=== PATIENT | female | born 1990 | race Caucasian/White ===

== ENCOUNTER 2016-07-24 22:57 | Emergency (ER) | payer MEDICAID ==
[~2016-07-24] VITALS: Ht 162.6 cm; Wt 85.3 kg
[2016-07-24] MEDS ORDERED: MIDAZOLAM HCL 2 MG/2 ML VIAL ONE (23:18)
--- NOTE | 2016-07-25 00:30 | NUR ---
pt to room, changed into gown. Pt c/o pelvic pain last several days, worse today. Pt denies vaginal bleeding or discharge. Pt resting in position of comfort for self.
[2016-07-25 00:38] LABS: BASOPHILS # (AUTO) 0.1 K/uL (0.0-8.0); BASOPHILS % (AUTO) 0.6 % (0.0-2.0); EOSINOPHILS # (AUTO) 0.3 K/uL (0.0-0.7); EOSINOPHILS % (AUTO) 2.4 % (0.0-7.0); HEMATOCRIT 42.3 % (37-47); LYMPHOCYTES # (AUTO) 5.2 K/UL (0.8-4.8); LYMPHOCYTES % (AUTO) 44.9 % (20.5-51.5); MEAN CORPUSCULAR HEMOGLOBIN 25.4 UUG (27.0-31.0); MEAN CORPUSCULAR HGB CONC 33 g/dL (32.0-37.0); MEAN CORPUSCULAR VOLUME 76.5 FL (81.0-99.0); MONOCYTES # (AUTO) 0.9 K/UL (0.1-1.30); MONOCYTES % (AUTO) 7.4 % (0.0-11.0); NEUTROPHILS # (AUTO) 5.2 K/UL (1.8-8.9); NEUTROPHILS % (AUTO) 44.7 % (38.5-71.5); PLATELET COUNT (AUTO) 266 K/UL (150-450); RED BLOOD CELL COUNT(AUTO) 5.52 MIL/UL (4.2-5.4); WHITE BLOOD COUNT (AUTO) 11.7 K/UL (4.0-11.2)
[2016-07-25 00:43] LABS: CARBON DIOXIDE 27 mmol/L (21-32); CHLORIDE 103 mmol/L (98-107); CREATININE 0.7 mg/dL (0.6-1.3); GLUCOSE 122 mg/dL (74-106); POTASSIUM 3.6 mmol/L (3.5-5.1); UREA NITROGEN, BLOOD 9 mg/dL (7-18)
[2016-07-25 00:50] LABS: ALANINE AMINOTRANSFERASE 57 U/L (14-59); ALKALINE PHOSPHATASE 79 U/L (50-136); ASPARTATE AMINOTRANSFERASE 27 U/L (15-37); BILIRUBIN,DIRECT < 0.1 mg/dL (0.0-0.2); BILIRUBIN,TOTAL 0.2 mg/dL (0.2-1.0); TOTAL PROTEIN, SERUM 8.2 g/dL (6.4-8.2)
[2016-07-25 00:52] LABS: *BILIRUBIN,URIN NEGATIVE (NEGATIVE); *BLOOD, URINE Trace-intact (NEGATIVE); *CLARITY,URINE CLEAR (CLEAR); *COLOR,URINE YELLOW (YELLOW); *KETONES,URINE NEGATIVE (NEGATIVE); *PROTEIN,URINE NEGATIVE (NEGATIVE); *UROBILINOGEN,URINE 0.2 E.U./dl (NORMAL); LEUKOCYTE ESTERASE ,URINE NEGATIVE (NEGATIVE); NITRITE, URINE NEGATIVE (NEGATIVE); PH,URINE 7.5 (5.0-8.0); UGLUCOSE NEGATIVE (NEGATIVE)
[2016-07-25 00:55] LABS: BACTERIA,URINE FEW /HPF (NONE SEEN); RBC,URINE 0-3 /HPF (0-3); SQUAMOUS EPITHELIAL CELL,UR MODERATE /HPF (NONE SEEN); WBC,URINE 0-3 /HPF (0-3)
--- NOTE | 2016-07-25 01:50 | NUR ---
Pelvic exam completed by MD with female chaparone. Specimens collected and sent to lab. Pt resting in position of comfort for self.
--- NOTE | 2016-07-25 02:45 | NUR ---
Pt stable for discharge per MD. Pt given ACI. Pt verbalized understanding of dc instructions. Pt ambulated out of er with steady gait.
[2016-07-25 05:52] VITALS: BP 112/62
== END 2016-07-25 02:45 | disposition home or self-care (01) ==
LOC: ER 22:57
DX: R10.2 Pelvic and perineal pain (principal); F41.9 Anxiety disorder, unspecified
CPT/HCPCS: 36415; 76856; 85025; 85730; 86850; 86900; 86901; 87210; A4663; J2250